=== PATIENT | female | born 1970 | race African-American/Black ===

== ENCOUNTER 2022-04-26 10:48 | Emergency (ER) | payer OTHER | END 2022-04-26 11:40 | disposition home or self-care (01) | LOC: MADERS 10:48 | DX: S71.111D Laceration without foreign body, right thigh, subsequent encounter (principal); I10 Essential (primary) hypertension; Z48.02 Encounter for removal of sutures ==

== ENCOUNTER 2022-12-14 13:12 | Emergency (ER) | payer OTHER | END 2022-12-14 15:10 | disposition home or self-care (01) | LOC: MADERS 13:12 | DX: J06.9 Acute upper respiratory infection, unspecified (principal); I10 Essential (primary) hypertension | CPT/HCPCS: 99283 ==

== ENCOUNTER 2023-01-03 14:12 | Emergency (ER) | payer OTHER ==
[2023-01-03] MEDS ORDERED: predniSONE 10 MG TAB ONE (14:43)
== END 2023-01-03 16:25 | disposition home or self-care (01) ==
LOC: MADERS 14:12
DX: T78.3XXA Angioneurotic edema, initial encounter (principal); I10 Essential (primary) hypertension
CPT/HCPCS: 99283; J7512